=== PATIENT | female | born 1980 | race Caucasian/White ===

== ENCOUNTER 2020-02-13 20:37 | Emergency (ER) | payer OTHER ==
--- NOTE | 2020-02-13 20:42 | PDOC ---
Rapid Medical Evaluation Time Seen by Provider: 02/13/20 20:39 Medical Evaluation: Allergies Allergy/AdvReac Type Severity Reaction Status Date / Time No Known Allergies Allergy Verified 08/15/14 06:58 02/13/20 20:39 I performed a brief in-person evaluation of this patient. Pt is a 39 y/o female who presents to the ED with R knee pain after her knee "just gave out on her". She denies any falls. She states it happened about an hour ago. She felt a pop and when she went to step on it, she was unable to bear weight. Pertinent physical exam findings: R knee brace in place, EHL intact r side I have ordered the following: R knee xr Patient to proceed to ED for further evaluation. Discharge Disposition - Diagnosis Right knee pain - Referrals - Patient Instructions - Post Discharge Activity
[2020-02-13 20:44] VITALS: BP 116/69; PULSE 77; BMI 30.1
--- NOTE | 2020-02-13 21:01 | PDOC ---
History of Present Illness - General Chief Complaint: Pain, Acute Stated Complaint: RT KNEE PAIN Time Seen by Provider: 02/13/20 20:39 History Source: Patient - History of Present Illness Occurred: reports: this evening Severity: Yes: moderate Lower Extremity Pain Location: right: knee Method of Injury: Yes: other Past History - Medical History Allergies/Adverse Reactions: Allergies Allergy/AdvReac Type Severity Reaction Status Date / Time No Known Allergies Allergy Verified 08/15/14 06:58 Home Medications: Ambulatory Orders Ibuprofen [Motrin -] 800 mg PO Q6H #30 tablet 02/13/20 COPD: No - Reproductive History (#): 4 Para: 2 Cervical CA: No Dysfunctional Uterine Bleeding: No Ectopic : Yes Endometrial CA: No Polycystic Ovaries: No Therapeutic (s) & number: Yes Tubal Ligation: No Spontaneous : 0 - Immunization History Immunization Up to Date: Yes - Psycho-Social/Smoking History Smoking History: Never smoked Have you smoked in the past 12 months: No - Substance Abuse Hx (Audit-C & DAST Scrn) How often the patient has a drink containing alcohol: Never Score: In Men: 4 or > Positive; In Women: 3 or > Positive: 0 Screen Result (Pos requires Nsg. Audit-10AR): Negative Review of Systems - Review of Systems Musculoskeletal: Yes: Joint Pain *Physical Exam - Vital Signs Last Vital Signs Temp Pulse Resp BP Pulse Ox 77 19 116/69 98 02/13/20 20:40 02/13/20 20:40 02/13/20 20:40 02/13/20 20:40 - Physical Exam General Appearance: Yes: Appropriately Dressed HEENT: positive: Normal Voice Neck: positive: Supple Respiratory/Chest: negative: Respiratory Distress Extremity: positive: Other (Osorio wrap in place to R knee w/ mild swelling/ttp to medial knee, no joint laxity) Integumentary: positive: Dry, Warm Neurologic: positive: Fully Oriented, Alert, Normal Mood/Affect Medical Decision Making - Medical Decision Making 02/13/20 20:59 39 yo F, no sig hx, here w/ R knee pain after knee "gave out" while holding baby in her arm and bending down to get something from the fridge tonight. States she hear "a pop". No fall. Unable to bear weight See exam M/l MSK pain to R knee No fall XR wnl Pt w/ OSORIO in place on arrival -toradol in ED -crutches given -ortho f/u as needed Discharge - Discharge Information Problems reviewed: Yes Clinical Impression/Diagnosis: Right knee pain Qualifiers: Chronicity: acute Qualified Code(s): M25.561 - Pain in right knee Condition: Good Disposition: HOME - Additional Discharge Information Prescriptions: Ibuprofen [Motrin -] 800 mg PO Q6H #30 tablet - Follow up/Referral Referrals: Claudy Minor MD [Staff Physician] - - Patient Discharge Instructions Patient Printed Discharge Instructions: DI for Knee Sprain Additional Instructions: You were treated for knee sprain You xray was negative for fracture Keep OSORIO in place, elevate extremity and apply ice for swelling Take motrin for pain as needed If pain persists after 2 weeks, please follow up with Dr Minor - Post Discharge Activity
[2020-02-13] MEDS ORDERED: KETOROLAC TROMETHAMINE 60 MG/2 ML VIAL IM ONE (21:07)
[2020-02-13] MEDS ORDERED: KETOROLAC TROMETHAMINE 60 MG/2 ML VIAL ONE (21:09)
== END 2020-02-13 21:46 | disposition home or self-care (01) ==
LOC: JERFT 20:37
PROC: 3E0233Z Introduction of Anti-inflammatory into Muscle, Percutaneous Approach (ICD-10-PCS; principal; 2020-02-13)
DX: M25.561 Pain in right knee (principal)
CPT/HCPCS: 73562-TC-RT-FY; 99285-25